=== PATIENT | male | born 1970 | race Hispanic/Latino ===

== ENCOUNTER 2016-11-06 10:03 | Emergency (ER) | payer OTHER ==
[2016-11-06] MEDS ORDERED: FLEXERIL5 MG PO (10:18)
[2016-11-06] MEDS ORDERED: LORTAB 5-325 MG1 TAB PO (11:51)
[2016-11-06 12:04] VITALS: BP 134/89
== END 2016-11-06 12:12 | disposition home or self-care (01) | DRG 552 ==
LOC: ED 10:03
DX: M54.9 Dorsalgia, unspecified (principal)

== ENCOUNTER 2016-11-24 13:41 | Emergency (ER) | payer OTHER ==
[~2016-11-24] VITALS: Ht 170.2 cm; Wt 65.0 kg
[~2016-11-24 13:41] MED LIST: FLEXERIL5 MG PO; LORTAB 5-325 MG1 TAB PO
[2016-11-24 16:04] LABS: HEMATOCRIT 39.5 % (39.0-50.0); HEMOGLOBIN 13.1 g/dl (14.0-18.0); IMMATURE GRANULOCYTES 0.4 % (0.0-1.0); MEAN CELL VOLUME 92.7 fL CALC (80.0-100.0); MEAN CORPUSCULAR HGB 30.8 pG CALC (26.0-32.0); MEAN CORPUSCULAR HGB CONC 33.2 g/L CALC (32.0-36.0); NEUT# 3.65 thou/uL (1.82-7.42); RED BLOOD COUNT 4.26 mill/uL (4.70-6.10); RED CELL DISTRI WIDTH 13.8 % (11.5-15.5)
[2016-11-24 16:13] LABS: ALBUMIN 4.8 g/dL (3.2-5.0); ALKALINE PHOSPHATASE 275 u/l (38-126); AMYLASE 83 u/l (30-110); ANION GAP 21 (6-22 (CALC)); BILIRUBIN, TOTAL 0.7 mg/dL (0.0-1.4); BUN 21 mg/dL (9-20); BUN/CREATININE RATIO 18 (12-20 (CALC)); CALCIUM 10.9 mg/dL (8.4-10.2); CARBON DIOXIDE 26 mmol/l (22-30); CHLORIDE 102 mmol/l (95-108); CREATININE 1.2 mg/dL (0.7-1.3); GFR > 60 ML/MIN (>=60 (CALC)); GFR FOR AFR.AMER. > 60 ML/MIN (>=60 (CALC)); GLUCOSE 97 mg/dL (75-110); LIPASE 67 u/l (23-300); POTASSIUM 4.9 mmol/l (3.5-5.1); SGOT/AST 83 u/l (17-59); SGPT/ALT 89 u/l (21-72); SODIUM 145 mmol/l (137-146); TOTAL PROTEIN 9.2 g/dL (6.3-8.2)
[2016-11-24 16:25] LABS: MYOGLOBIN 18 ng/mL (0 - 121)
[2016-11-24] MEDS ORDERED: TRAMADOL HYDROC50 MG PO (17:48)
[2016-11-24] MEDS ORDERED: ZOFRAN ODT4 MG PO (17:48)
[2016-11-24 23:26] VITALS: BP 126/72
== END 2016-11-24 23:26 | disposition short-term general hospital (02) | DRG 436 ==
LOC: ED 13:41
PROVIDERS: Emergency Medicine
DX: C22.0 Liver cell carcinoma (principal); C79.9 Secondary malignant neoplasm of unspecified site
CPT/HCPCS: Q9967